=== PATIENT | male | born 1995 | race Caucasian/White ===

== ENCOUNTER 2022-02-28 13:17 | Emergency (ER) | payer BC ==
[2022-02-28 13:23] VITALS: BP 152/99; PULSE 108; RESP 18; TEMP 98
[2022-02-28 15:10] LABS: Basophils # (A) 0.1 k/uL (0-0.2); Basophils % (A) 1 %; Eosinophils # (A) 0.2 k/uL (0-0.7); Eosinophils % (A) 2 %; HCT 41.9 % (39.0-53.0); HGB 14.9 gm/dL (13.0-17.5); Lymphocytes # (A) 2.4 k/uL (1.0-4.8); Lymphocytes % (A) 26 %; MCH 31.2 pg (25.0-35.0); MCHC 35.6 g/dL (31.0-37.0); MCV 87.7 fL (80.0-100.0); Mean Platelet Volume 8.6; Monocytes # (A) 0.4 k/uL (0-1.0); Monocytes % (A) 5 %; Neutrophils % (A) 64 %; Platelet Count 286 k/uL (150-450); RBC 4.78 m/uL (4.30-5.90); RDW 11.8 % (11.5-15.5); WBC 9.4 k/uL (3.8-10.6)
[2022-02-28 15:23] LABS: Amphetamine Screen,Urine Not Detected (NotDetected); Barbiturate Screen,Urine Not Detected (NotDetected); Benzodiazepines Screen,Urine Not Detected (NotDetected); Cocaine Screen,Urine Not Detected (NotDetected); Methadone Screen, Urine Not Detected (NotDetected); Opiate Screen,Urine Detected (NotDetected); Oxycodone Screen, Urine Not Detected (NotDetected); Phencyclidine Screen,Urine Not Detected (NotDetected); Tricyclic Antidepressant,Urine Not Detected (NotDetected); Urn Cannabinoid Scrn Not Detected (NotDetected)
--- NOTE | 2022-02-28 15:25 | CT ---
EXAMINATION TYPE: CT brain wo con DATE OF EXAM: 02/28/2022 COMPARISON: None HISTORY: AMS CT DLP: 1151.4 mGycm. Automated Exposure Control for Dose Reduction was Utilized. TECHNIQUE: CT scan of the head is performed without contrast. FINDINGS: There is no acute intracranial hemorrhage, mass effect, or midline shift identified. The ventricles and sulci are within normal limits in size. There are moderate to marked chronic inflamma tory changes in the frontal, maxillary and ethmoid air cells. Mastoid air cells are well aerated. The calvarium is intact. IMPRESSION: No acute intracranial hemorrhage, mass effect, or midline shift is seen. Moderate to mar ked chronic inflammatory changes of the paranasal sinuses.
[2022-02-28 15:35] LABS: ALT 28 U/L (4-49); AST 27 U/L (17-59); African American GFR (CKD) >90 (>60 ml/min/1.73 sqM); Albumin 4.8 g/dL (3.5-5.0); Alkaline Phosphatase 69 U/L (38-126); Anion Gap 12 mmol/L; Blood Urea Nitrogen 16 mg/dL (9-20); Calcium 9.3 mg/dL (8.4-10.2); Carbon Dioxide 23 mmol/L (22-30); Chloride 104 mmol/L (98-107); Glucose 97 mg/dL (74-99); Non-African American GFR(CKD) >90 (>60 ml/min/1.73 sqM); Sodium 139 mmol/L (137-145); Total Bilirubin 0.5 mg/dL (0.2-1.3); Total Protein 7.5 g/dL (6.3-8.2)
--- NOTE | 2022-02-28 16:08 | ED ---
General Adult HPI - General Source: patient, family, RN notes reviewed Mode of arrival: ambulatory Limitations: no limitations <Sam Mandujano - Last Filed: 02/28/22 16:06> <Mateo Harris - Last Filed: 02/28/22 19:19> - General Chief complaint: Anxiety Stated complaint: Mental health Time Seen by Provider: 02/28/22 14:15 - History of Present Illness Initial comments: 26 show male presents emergency Department with chief complaint of anxiety, mental breakdown. Patient states that he made a mistake and states that he quit a job and states that he's been having severe anxiety issues, breakdown in which he had to leave his current living situation came home to be with his parents. Patient states he was on multiple medications and was prior diagnosed with bipolar disorder. Patient states that he was on Prozac, Lamictal, Geodon. Patient states that she was recently placed back on Lamictal he was on Wellb utrin just prior to this. Patient does admit that he was using marijuana heavily. Patient does admit that he drank some alcohol last weekend but does not abuse alcohol. (Sam Mandujano) - Related Data Allergies Allergy/AdvReac Type Severity Reaction Status Date / Time steroids Allergy Unknown Uncoded 02/28/22 19:03 Review of Systems ROS Other: All systems not noted in ROS Statement are negative. <Sam Mandujano - Last Filed: 02/28/22 16:06> ROS Other: All systems not noted in ROS Statement are negative. <Mateo Harris - Last Filed: 02/28/22 19:19> ROS Statement: Those systems with pertinent positive or pertinent negative responses have been documented in the HPI. Past Medical History Past Medical History: No Reported History History of Any Multi-Drug Resistant Organisms: None Reported Additional Past Surgical History / Comment(s): sinus surgery and kidney surgery Past Psychological History: Anxiety, Bipolar, Depression Smoking Status: Former smoker, Vaper Past Alcohol Use History: Occasional Past Drug Use History: Marijuana <Sam Mandujano - Last Filed: 02/28/22 16:06> General Exam Limitations: no limitations General appearance: alert, in no apparent distress, anxious Head exam: Present: atraumatic, normocephalic, normal inspection Eye exam: Present: normal appearance, PERRL, EOMI. Absent: scleral icterus, conjunctival injection, periorbital swelling ENT exam: Present: normal exam, normal oropharynx, mucous membranes moist Neck exam: Present: normal inspection, full ROM. Absent: tenderness, meningism us, lymphadenopathy Respiratory exam: Present: normal lung sounds bilaterally. Absent: respiratory distress, wheezes, rales, rhonchi, stridor Cardiovascular Exam: Present: regular rate, normal rhythm, normal heart sounds. Absent: systolic murmur, diastolic murmur, rubs, gallop, clicks Psychiatric exam: Present: anxious Skin exam: Present: warm, dry, intact, normal color. Absent: rash <Sam Mandujano - Last Filed: 02/28/22 16:06> Course Vital Signs 02/28/22 13:19 Temperature 98 F Pulse Rate 108 H Respiratory 18 Rate Blood Pressure 152/99 O2 Sat by Pulse 97 Oximetry Medical Decision Making - Lab Data Result diagrams: 02/28/22 15:01 02/28/22 15:01 <Sam Mandujano - Last Filed: 02/28/22 16:06> - Lab Data Result diagrams: 02/28/22 15:01 02/28/22 15:01 <Mateo Harris - Last Filed: 02/28/22 19:19> - Lab Data Lab Results 02/28/22 02/28/22 02/28/22 Range/Units 15:01 15:01 15:01 WBC 9.4 (3.8-10.6) k/uL RBC 4.78 (4.30-5.90) m/uL Hgb 14.9 (13.0-17.5) gm/dL Hct 41.9 (39.0-53.0) % MCV 87.7 (80.0-100.0) fL MCH 31.2 (25.0-35.0) pg MCHC 35.6 (31.0-37.0) g/dL RDW 11.8 (11.5-15.5) % Plt Count 286 (150-450) k/uL MPV 8.6 Neutrophils % 64 % Lymphocytes % 26 % Monocytes % 5 % Eosinophils % 2 % Basophils % 1 % Neutrophils # 6.0 (1.3-7.7) k/uL Lymphocytes # 2.4 (1.0-4.8) k/uL Monocytes # 0.4 (0-1.0) k/uL Eosinophils # 0.2 (0-0.7) k/uL Basophils # 0.1 (0-0.2) k/uL Sodium 139 (137-145) mmol/L Potassium 4.0 (3.5-5.1) mmol/L Chloride 104 (98-107) mmol/L Carbon Dioxide 23 (22-30) mmol/L Anion Gap 12 mmol/L BUN 16 (9-20) mg/dL Creatinine 0.95 (0.66-1.25) mg/dL Est GFR (CKD-EPI)AfAm >90 (>60 ml/min/1.73 sqM) Est GFR (CKD-EPI)NonAf >90 (>60 ml/min/1.73 sqM) Glucose 97 (74-99) mg/dL Calcium 9.3 (8.4-10.2) mg/dL Total Bilirubin 0.5 (0.2-1.3) mg/dL AST 27 (17-59) U/L ALT 28 (4-49) U/L Alkaline Phosphatase 69 (38-126) U/L Total Protein 7.5 (6.3-8.2) g/dL Albumin 4.8 (3.5-5.0) g/dL TSH 1.300 (0.465-4.680) mIU/L Urine Opiates Screen Detected H (NotDetected) Ur Oxycodone Screen Not Detected (NotDetected) Urine Methadone Screen Not Detected (NotDetected) Ur Propoxyphene Screen Not Detected (NotDetected) Ur Barbiturates Screen Not Detected (NotDetected) U Tricyclic Antidepress Not Detected (NotDetected) Ur Phencyclidine Scrn Not Detected (NotDetected) Ur Amphetamines Screen Not Detected (NotDetected) U Methamphetamines Scrn Not Detected (NotDetected) U Benzodiazepines Scrn Not Detected (NotDetected) Urine Cocaine Screen Not Detected (NotDetected) U Marijuana (THC) Screen Not Detected (NotDetected) Disposition <Sam Mandujano - Last Filed: 02/28/22 16:06> Is patient prescribed a controlled substance at d/c from ED?: No <Mateo Harris - Last Filed: 02/28/22 19:19> Clinical Impression: Acute anxiety Disposition: HOME SELF-CARE Condition: Fair Instructions (If sedation given, give patient instructions): Generalized Anxiety Disorder (ED) Referrals: None,Stated [Primary Care Provider] - 1-2 days
== END 2022-02-28 19:25 | disposition home or self-care (01) ==
LOC: EC 13:17
DX: F41.9 Anxiety disorder, unspecified (principal); F31.9 Bipolar disorder, unspecified; F12.90 Cannabis use, unspecified, uncomplicated; F17.290 Nicotine dependence, other tobacco product, uncomplicated
CPT/HCPCS: 36415; 70450; 80053; 80306; 82075; 84443; 85025; 99284